=== PATIENT | female | born 1965 | race Caucasian/White ===

== ENCOUNTER 2021-11-04 11:13 | Outpatient (CLI) | payer MEDICARE, SELFPAY ==
--- NOTE | 2021-11-04 11:38 | CT_ITS ---
WS: [id number] CT ABDOMEN AND PELVIS WITH CONTRAST HISTORY: UPPER ABDOMINAL PAIN/NAUSEA W/O VOMITING/DIARRHEA TECHNIQUE: Imaging performed of the abdomen and pelvis with IV contrast. Single phase imaging of the abdomen. Coronal and sagittal reformats are submitted. All CT scans at [facility] use at [address] one of these dose optimization techniques: automated exposure control; mA and/or kV adjustment per patient size (includes targeted exams where dose is matched to clinical indication); or iterative re construction. IV CONTRAST: Omnipaque 350; 65 mL IV. Oral contrast: Yes. DLP: 336.08 mGy.cm COMPARISON: None available. Lower thorax: Moderate pulmonary hyperexpansion from emphysema. Heart is normal size. No hiatal herni a. Liver/biliary system: Normal size with no intrahepatic dilatation. Gallbladder: Normal. No gallstones or wall thickening. No pericholecystic fluid. Pancreas: Normal size pancreas. Pancreatic duct is dilated throughout and just over 2 mm. No mass kamran ntified and no atrophy of the pancreas. Spleen: Normal size spleen. No mass or infarct. Adrenal glands: Normal. Right kidney: Normal. Left kidney: Normal. Aorta: Normal size. No aneurysm. Mild atherosclerotic calcification. No filling defects in the mesent apple vessels. Lymphadenopathy: None. Free fluid: None. GI tract: Stomach is well-distended with oral contrast. There is mild diffuse mucosal thickening with in the stomach. In the antrum of the stomach is a focal stricture with low attenuation within the muc nae and submucosa. This may be an area of peristalsis but cannot exclude a neoplastic stricture. Ther e is no obstruction. No small bowel obstruction although there is very little contrast remaining in t he small bowel. No colon obstruction. The appendix is normal. Abdominal wall: Unremarkable abdominal wall. No hernia. Pelvis: No free fluid or adenopathy within the pelvis. Mildly retroverted and retroflexed uterus. Lala eusebio is atrophic. There is a prominent vessel in the pelvis is closely associated with the uterus. May be a varicosity. Extensive pelvic and retroperitoneal varicosities. Bones: Advanced degenerative disc disease and osteochondrosis at L5-S1. CT/CT abdomen pelvis w con* [id number] IMPRESSION: 1. Focal circumferential thickening involving the antrum of the stomach. Early neoplastic stricture is not excluded. There is no obstruction as there is oral contrast throughout the small bowel and distal to this stricture. Could simply be an area of peristalsis. 2. No adenopathy or ascites identified. 3. There is a loop of small bowel deep within the RIGHT inguinal region which may be the palpable abnormality. There is no herniation or obstruction at this time. 4. Diffuse constipation. 5. Pancreatic duct is seen throughout its course. Pancreatic duct measures jus t over 2 mm. No pancreatic atrophy or mass at the pancreatic head. Suggest shor t-term follow-up. Very early signs of pancreatic cancer may be a dilated pancre atic duct throughout.
[2021-11-04] MEDS: iohexol 300 mg/mL 50 mL Btl PO (11:47)
== END 2021-11-04 11:14 | disposition home or self-care (01) ==
PROVIDERS: PCP Nurse Practitioner; Visit Provider Nurse Practitioner
DX: R10.10 Upper abdominal pain, unspecified (principal); R11.0 Nausea; R19.7 Diarrhea, unspecified; R93.5 Abnormal findings on diagnostic imaging of other abdominal regions, including retroperitoneum; K59.00 Constipation, unspecified
CPT/HCPCS: 74170; 74177

== ENCOUNTER → 2024-03-03 10:00 | Outpatient (BNVA) | payer MEDICARE, MEDICAID, SELFPAY | PROVIDERS: PCP Nurse Practitioner Family; Visit Provider Nurse Practitioner Family | DX: Z13.6 Encounter for screening for cardiovascular disorders (principal); R63.4 Abnormal weight loss; M81.0 Age-related osteoporosis without current pathological fracture | CPT/HCPCS: 80053; 80061; 82306; 84443; 85025 ==

== ENCOUNTER 2024-04-07 12:32 | Outpatient (CLI) | payer MEDICARE, MEDICAID, SELFPAY ==
--- NOTE | 2024-04-07 12:39 | XR_ITS ---
WS: [id number] DEXA (DUAL ENERGY X-RAY ABSORPTIOMETRY) Bone mineral density was performed using a [employer] machine. HISTORY: M81.0 - Age-related osteoporosis without current patholog... COMPARISON: None available. Lumbar spine BMD (L1-L4): 0.957 g/cm2 T score: -1.9 Z score: 0.6 Total hip BMD: Left: 0.616 g/cm2. T score: -3.1 Z score: -1.3 Right: 0.673 g/cm2. T score: -2.7 Z score: -0.8 10 year probability of a major osteoporotic fracture is 17.4%. XR/XR DEXA axial skeleton* [id number] IMPRESSION: OSTEOPOROSIS based upon the WHO classification for females.
--- NOTE | 2024-04-07 12:39 | XR_ITS ---
WS: [id number] No fracture or dislocation. Disc spaces are relatively well-maintained. Mild facet DJD at all levels. Normal paraspinal soft tissues. The odontoid is intact. XR/XR cervical spine 3V* [id number] IMPRESSION: 1. Mild degenerative changes otherwise negative C-spine study.
--- NOTE | 2024-04-07 12:39 | CT_ITS ---
WS: [email or web address] LDCT LUNG CANCER SCREENING HISTORY: F17.210 - Nicotine dependence, cigarettes, uncomplicated TECHNIQUE: Axial imaging performed from the apices to 1 cm below the costophrenic angles. Coronal and sagittal reformats are submitted with axial MIP series. All CT scans at [facility] use at least one of these dose optimization techniques: automated exposure control; mA and/or kV adjustment per patient size (includes targeted exams where dose is matched to clinical indication); or iterativ e reconstruction. DLP: 38.20 mGy.cm DIvol: Mean CTDIvol: 0.60 (mGy) COMPARISON: None available. Diagnostic quality: Satisfactory Lungs: 5 mm slightly spiculated nodule in the RIGHT middle lobe with mild bronchial dilatation. There is associated calcification along the fissure. LEFT lower lobe pulmonary calcification. No endobronc hial lesions. Heart: Normal size heart with no pericardial effusion.. Other findings: Very mild atherosclerosis aorta. Small hiatal hernia. Increase in thoracic kyphosis. CT/CT lung screening [id number] IMPRESSION: LUNG-RADS: 2-Benign Appearance or Behavior FOLLOW UP: 12 Month: Continue annual screening with LDCT OTHER FINDINGS (S MODIFIER): None.
== END 2024-04-07 12:33 | disposition home or self-care (01) ==
LOC: RAD 12:33
PROVIDERS: PCP Nurse Practitioner Family; Visit Provider Nurse Practitioner Family
DX: Z12.2 Encounter for screening for malignant neoplasm of respiratory organs (principal); Z13.820 Encounter for screening for osteoporosis; M81.0 Age-related osteoporosis without current pathological fracture; M54.2 Cervicalgia; F17.210 Nicotine dependence, cigarettes, uncomplicated; R91.8 Other nonspecific abnormal finding of lung field
CPT/HCPCS: 71271; 72040; 77080

== ENCOUNTER → 2024-10-27 13:45 | Outpatient (BNVA) | payer MEDICARE, MEDICAID, SELFPAY | PROVIDERS: PCP Nurse Practitioner Family; Visit Provider Nurse Practitioner Family | DX: R11.2 Nausea with vomiting, unspecified (principal); R19.7 Diarrhea, unspecified; R10.9 Unspecified abdominal pain; R63.4 Abnormal weight loss; Z68.1 Body mass index [BMI] 19.9 or less, adult; K46.9 Unspecified abdominal hernia without obstruction or gangrene; E55.9 Vitamin D deficiency, unspecified; E53.8 Deficiency of other specified B group vitamins | CPT/HCPCS: 74018; 80053; 81000; 82306; 82607; 84443; 85025; 87086 ==

== ENCOUNTER → 2024-11-08 09:15 | Outpatient (BNVA) | payer MEDICARE, MEDICAID, SELFPAY | PROVIDERS: PCP Nurse Practitioner Family; Visit Provider Nurse Practitioner Family | DX: R79.89 Other specified abnormal findings of blood chemistry (principal); R63.4 Abnormal weight loss | CPT/HCPCS: 84439; 84443; 84480 ==

== ENCOUNTER 2024-12-07 12:15 | Outpatient (CLI) | payer OTHER, MEDICAID, SELFPAY ==
--- NOTE | 2024-12-07 12:30 | CT_ITS ---
WS: [id number] CT ABDOMEN AND PELVIS WITH CONTRAST HISTORY: R63.4 - Abnormal weight loss TECHNIQUE: Imaging performed of the abdomen and pelvis with IV contrast. Single phase imaging of the abdomen. Coronal and sagittal reformats are submitted. All CT scans at [facility] use at least one of these dose optimization techniques: automated exposure control; mA and/or kV adjustment per patient size (includes targeted exams where dose is matched to clinical indication); or iterative reconstruction. IV CONTRAST: Omnipaque 350; 100 mL IV. Oral contrast: Yes. DLP: 193.94 mGy.cm COMPARISON: 11/04/2021 Lower thorax: Bilateral lower lung field granulomas. Hyperexpanded lungs with advanced centrilobular emphysema. Heart is normal size. No hiatal hernia. Liver/biliary system: Normal size with no intrahepatic dilatation. Gallbladder: Normal. No gallstones or wall thickening. No pericholecystic fluid. Pancreas: Pancreatic duct is prominent but less than 2 mm and similar to the prior study. No abnormality noted at the pancreatic head. Spleen: Normal size spleen. No mass or infarct. Adrenal glands: Normal. Right kidney: Normal. Left kidney: Normal. Aorta: Normal. Lymphadenopathy: None. Free fluid: None. GI tract: Stomach is well distended with oral contrast. No mass identified. Proximal small bowel loops are circumferentially thickened up to 8 mm. The mid and distal small bowel loops are normal. Normal colon with no obstruction. Abdominal wall: Unremarkable abdominal wall. No hernia. Pelvis: No free fluid or adenopathy within the pelvis. Bones: Severe degenerative disc disease at L5-S1. CT/CT abdomen pelvis w con* [id number] IMPRESSION: 1. Marked circumferential jejunal wall thickening. Distal small bowel is connor l caliber. There is no obstruction. This is typically noted with an inflammator y infectious etiology. 2. No ascites and no adenopathy identified. 3. Centrilobular emphysema at the lung bases. 4. No renal obstruction.
[2024-12-07] MEDS: iohexol 350 mg/mL 500 mL Btl (per mL) PO (12:39)
[2024-12-07] MEDS: iohexol 350 mg/mL 500 mL Btl (per mL) IV (13:49)
== END 2024-12-07 12:16 | disposition home or self-care (01) ==
LOC: RAD 12:17
PROVIDERS: PCP Nurse Practitioner Family; Visit Provider Nurse Practitioner Family
DX: R63.4 Abnormal weight loss (principal); R10.9 Unspecified abdominal pain; K86.89 Other specified diseases of pancreas; K63.89 Other specified diseases of intestine; J43.2 Centrilobular emphysema; J84.10 Pulmonary fibrosis, unspecified; R91.8 Other nonspecific abnormal finding of lung field; R93.89 Abnormal findings on diagnostic imaging of other specified body structures; M51.379 Other intervertebral disc degeneration, lumbosacral region without mention of lumbar back pain or lower extremity pain
CPT/HCPCS: 74177

== ENCOUNTER → 2025-01-08 08:45 | Outpatient (BNVA) | payer MEDICARE, OTHER, SELFPAY | PROVIDERS: PCP Nurse Practitioner Family; Visit Provider Nurse Practitioner Family | DX: E03.9 Hypothyroidism, unspecified (principal) | CPT/HCPCS: 84443 ==

== ENCOUNTER → 2025-02-22 08:50 | Outpatient (BNVA) | payer MEDICARE, OTHER, SELFPAY | PROVIDERS: PCP Nurse Practitioner Family; Visit Provider Nurse Practitioner Family | DX: E03.9 Hypothyroidism, unspecified (principal) | CPT/HCPCS: 84443 ==

== ENCOUNTER → 2025-02-26 09:00 | Outpatient (BNVA) | payer MEDICARE, SELFPAY | PROVIDERS: PCP Nurse Practitioner Family; Visit Provider Nurse Practitioner Family | DX: Z12.4 Encounter for screening for malignant neoplasm of cervix (principal) | CPT/HCPCS: 88175 ==

== ENCOUNTER 2025-04-26 09:58 | Outpatient (CLI) | payer MEDICARE, MEDICAID, SELFPAY ==
--- NOTE | 2025-04-26 11:15 | CT_ITS ---
WS: [email or web address] LDCT LUNG CANCER SCREENING TECHNIQUE: Noncontrast CT of the chest with coronal and sagittal reformatted images. CLINICAL INFORMATION: F17.210 - Nicotine dependence, cigarettes, uncomplicated COMPARISON: 2023 DLP: 39.22 mGy.cm DIvol: Mean CTDIvol: 0.60 (mGy) All CT scans at [facility] use at least one of these dose optimization techniques: automated exposure control; mA and/or kV adjustment per patient size (includes targeted exams where dose is matched to clinical indication); or iterative reconstruction. FINDINGS: Stable 5 mm nodule RIGHT middle lobe with bronchiectasis. Few tiny scattered micronodules. No new suspicious pulmonary parenchymal normalities. Mild aortic calcification. Small esophageal hiatal hernia. Mild coronary calcification. Thoracic kyphosis. No mediastinal or hilar lymphadenopathy. CT/CT lung screening [id number] IMPRESSION: LUNG-RADS: 2-Benign Appearance or Behavior FOLLOW UP: 12 Month: Continue annual screening with LDCT
== END 2025-04-26 09:59 | disposition home or self-care (01) ==
LOC: RAD 10:00
PROVIDERS: PCP Nurse Practitioner Family; Visit Provider Nurse Practitioner Family
DX: Z12.2 Encounter for screening for malignant neoplasm of respiratory organs (principal); F17.210 Nicotine dependence, cigarettes, uncomplicated; R91.8 Other nonspecific abnormal finding of lung field; I70.0 Atherosclerosis of aorta; K44.9 Diaphragmatic hernia without obstruction or gangrene; I25.84 Coronary atherosclerosis due to calcified coronary lesion; M40.204 Unspecified kyphosis, thoracic region
CPT/HCPCS: 71271

== ENCOUNTER 2025-05-22 10:17 | Outpatient (CLI) | payer MEDICARE, MEDICAID, SELFPAY ==
--- NOTE | 2025-05-22 10:40 | MM_ITS ---
WS: [email or web address] BILATERAL 3D TOMOSYNTHESIS DIGITAL SCREENING MAMMOGRAPHY WITH CAD CLINICAL INFORMATION: Z12.39 - Encounter for other screening for malignant neop... HISTORY: Screening mammogram. No current complaints. COMPARISON: 2019 TECHNIQUE: Bilateral CC and MLO views. FINDINGS: The breasts are composed of heterogeneous fibroglandular density tissue, which can limit the detection of small underlying mass lesions. No suspicious mass, asymmetry, calcifications, or architectural distortion. No evidence of malignancy. Lucent centered calcification LEFT breast. MM/MM [facility] tomosynthesis [id number] IMPRESSION: DENSITY: The breasts are heterogeneously dense, which may obscure small masses. BI-RADS: 2 - Benign FOLLOW UP: 1 Year Follow-up Recommend return to annual screening mammography.
== END 2025-05-22 10:18 | disposition home or self-care (01) ==
PROVIDERS: PCP Nurse Practitioner Family; Visit Provider Nurse Practitioner Family
DX: Z12.31 Encounter for screening mammogram for malignant neoplasm of breast (principal); R92.333 Mammographic heterogeneous density, bilateral breasts; R92.323 Mammographic fibroglandular density, bilateral breasts; R92.1 Mammographic calcification found on diagnostic imaging of breast
CPT/HCPCS: 77063; 77067